=== PATIENT | female | born 2005 | race Caucasian/White ===

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

== ENCOUNTER 2024-12-10 18:52 | Emergency (ER) | payer OTHER, MEDICAID, SELFPAY ==
--- OUTSIDE RECORDS SUMMARY | 2024-03-21 08:00 | XMS_ITS ---
Author Organization [facility] es Address [address] [place] [address] Care Team Providers Care Bevel Operator Name Role Phone Sylwia Sheth Primary Care Provider Dr. Kayden Fang [facility] [phone] Allergies Allergen (clinical drug ingredient) Drug/Non Drug Allergy documented on EMR Reaction Allergy Type Onset Date Status lamotrigine LaMICtal rash Drug Allergy Active REASON FOR VISIT Patient is here today for a 3 week f/u. Medications Medication SIG (Take, Route, Frequency, Duration) Notes Start Date End Date Status lamoTRIgine 25 MG Tablet 1 tablet daily for 2 weeks and then increase to 2 tablets daily for 2 weeks Orally Once a day; Duration: 30 day(s) 07/22/2022Not-Taking/PRNARIPiprazole 5 MG Tablet1 tablet Orally Once a day; Duration: 30 daysActiveNexplanonNot-Taking/PRN Encounters Encounter Location Date Provider Diagnosis [facility] [address] [place] [address] 03/21/2024 Sylwia Sheth Plan Of Treatment Next Appt Details Provider Name:Kayden Fang, 1 03/13/2024 03:55:00 PM, [address] [place], [address], Provider Name:Breanna Lindsey , 05/12/2025 11:00:00 AM, [address] [place], [address], Progress Notes * DESTIN MANCINIDOB:2005 ( 19 yo F)Acc No.[id number]:03/21/2024 Behavioral Health Patient: DESTIN COCHRAN Provider:?Sylwia PaulB:2005???Age:19 Y ???Sex:FemaleDate:03/21/2024Phone:[phone]:[address] [facility] Subjective: * Chief Complaints: * P atient is here today for a 3 week f/u. * Medical History: Bipolar II disorder Medical History Verified * Surgical History: Denies Past Surgical History.? * Hospitalization/Major Diagno stic Procedure: Denies Past Hospitalization.? * Family History: F ather: alive. M other: alive. 2 brother(s) , 3 sister(s) . . F amily History Verified.. * Social History: Social History Verified. No Social History documented. * Medications: T akingARIPiprazole 5 MG Tablet 1 tablet Orally Once a day Taking ARIPiprazole 5 MG Tablet 1 tablet Orally Once a day Not-Taking/PRNNexplanon lamoTRIgine 25 MG Tablet 1 tablet daily for 2 weeks and then increase to 2 tablets daily for 2 weeks Orally Once a day Not-Taking/PRN Nexplanon Not-Taking/PRN lamoTRIgine 25 MG Tablet 1 tablet daily for 2 weeks and then increase to 2 tablets daily for 2 weeks Orally Once a day * Allergies: L aMICtal: rash - Side EffectsyesAllergies Verified. Billing Information: * Procedure Codes: * Electronic signature of ALTA Chaudhry on 12/10/2024 at 08:01 PM ESTSign off status: Pending * Appointment Provider: Moraima Sheth Date: 0 03/21/2024 Generated for Printing/Faxing/eTransmitting on:?12/10/2024 08:01 PM EST
--- OUTSIDE RECORDS SUMMARY | 2024-05-06 08:35 | XMS_ITS ---
Author Organization [facility] Address [address] [place] [address] Care Team Providers Care No Bake Molder Name Role Phone Sylwia Sheth Primary Care Provider [phone] Kayden Fang Unavailable [phone] Suzie Haney Unavailable [phone] REASON FOR VISIT FILLING Encounters Encounter Location Date Provider Diagnosis [facility] [address] [place] [address] 05/06/2024 Suzie Haney Plan Of Treatment Next Appt Details Provider Name:Kayden Fang, 1 03/13/2024 03:55:00 PM, [address] [place], [address], Provider Name:Breanna Lindsey , 05/12/2025 11:00:00 AM, [address] [place], [address], Progress Notes * DESTIN MANCINIDOB:2005 ( 19 yo F)Acc No.[id number]:05/06/2024 Patient:?DESTIN MANCINI :?Suzie HaneyDOB:2005???Age:19 Y???Sex: FemaleDate:05/06/2024Phone:[phone]:[address] [id number]:Sylwia Sheth Subjective: * Chief Complaints: * F ILLING Billing Information: * Procedure Codes: * Electronic signature of Suzie Haney DMD on 12/10/2024 at 08:01 PM ESTSign off status: Pending * Provider: Chun Haney Date: 0 05/06/2024 Generated for Printing/Faxing/eTransmitting on:?12/10/2024 08:01 PM EST
--- OUTSIDE RECORDS SUMMARY | 2024-05-16 08:30 | XMS_ITS ---
Author Organization [facility] Address [address] [place] [address] Care Team Providers Care Impregnator Carbon Products Name Role Phone Sylwia Sheth Primary Care Provider Dr. Kayden Fang [facility] [phone] REASON FOR VISIT 6 month f/u Medications Medication SIG (Take, Route, Frequency, Duration) Notes Start Date End Date Status Nexplanon Not-Taking/PRNLurasidone HCl 20 MG Tablet1 tablet in the evening with food Orally Once a day; Duration: 30 days5ActivelamoTRIgine 25 MG Tablet1 tablet daily for 2 weeks and then increase to 2 tablets daily for 2 weeks Orally Once a day; Duration: 30 day(s)07/22/2022Not-Taking/PRN Encounters Encounter Location Date Provider Diagnosis [facility] [address] [place] [address] 05/16/2024 Sylwia Sheth Plan Of Treatment Next Appt Details Provider Name:Kayden Fang, 1 03/13/2024 03:55:00 PM, [address] [place], [address], Provider Name:Breanna Lindsey , 05/12/2025 11:00:00 AM, [address], [place], [address], Progress Notes * DESTIN MANCINIDOB:2005 ( 19 yo F)Acc No.[id number]:05/16/2024 Behavioral Health Patient: DESTIN COCHRAN Provider:?Sylwia ShethDOB:2005???Age:19 Y ???Sex:FemaleDate:05/16/2024Phone:[phone]:[address] [place], [id number] Subjective: * Chief Complaints: * 6 month f/u * Medications: T akingLurasidone HCl 20 MG Tablet 1 tablet in the evening with food Orally Once a day Taking Lurasidone HCl 20 MG Tablet 1 tablet in the evening with food Orally Once a day Not-Taking/PRNNexplanon lamoTRIgine 25 MG Tablet 1 tablet daily for 2 weeks and then increase to 2 tablets daily for 2 weeks Orally Once a day Not-Taking/PRN Nexplanon Not-Taking/PRN lamoTRIgine 25 MG Tablet 1 tablet daily for 2 weeks and then increase to 2 tablets daily for 2 weeks Orally Once a day Billing Information: * Procedure Codes: * Electronic signature of ALTA Chaudhry on 12/10/2024 at 11:09 AM ESTSign off status: Pending * Appointment Provider: Moraima Sheth Date: 0 05/16/2024 Generated for Printing/Faxing/eTransmitting on:?12/10/2024 11:09 AM EST
--- OUTSIDE RECORDS SUMMARY | 2024-08-02 10:30 | XMS_ITS ---
Author Organization [facility] Address [address] [place] [address] Care Team Providers Care Certified Hyperbaric Technician Name Role Phone Sylwia Sheth Primary Care Provider [phone] Kayden Fang Unavailable [phone] REASON FOR VISIT FILLING Encounters Encounter Location Date Provider Diagnosis [facility] [address] [place] [address] 2024 Kayden Fang Plan Of Treatment Next Appt Details Provider Name:Kayden Fang, 1 03/13/2024 03:55:00 PM, [address] [place], [address], Provider Name:Breanna Lindsey , 05/12/2025 11:00:00 AM, [address] [place], [address], Progress Notes * DESTIN MANCINIDOB:2005 ( 19 yo F)Acc No.[id number]:08/02/2024 Patient:?DESTIN MANCINI :?Kayden Fang DDSDOB:2005???Age:19 Y???Sex: FemaleDate:08/02/2024Phone:[phone]:[address] [id number]:Sylwia Sheth Subjective: * Chief Complaints: * F ILLING Billing Information: * Procedure Codes: * Electronic signature of Dr. Kayden Fang , DMD, [id number] on 12/10/2024 at 11:09 AM ESTSign off status: Pending * Provider: Chun Fang DDS Date: 0 08/02/2024 Generated for Printing/Faxing/eTransmitting on:?12/10/2024 11:09 AM EST
[2024-12-10 19:07] VITALS: BP 124/99; PULSE 72; O2SAT 100; BMI 31.2
--- OUTSIDE RECORDS SUMMARY | 2024-12-10 20:01 | XMS_ITS | Encounter Summary ---
Author Organization [facility] Address [address] [place] [address] Care Team Providers Care Excavator Backhoe Operator Name Role Phone Karen Perez Aneudy CNM Unavailable [phone] Nyasia Breen MD Primary Care Provider [phone] Encounter Details DateTypeDepartmentCare Team (Latest Contact Info)Cxluzycshdr67/13/2024Clinisync Result Encounter [facility] External Department Unsolicited Provider, Generic External Data Social History Tobacco UseTypesPacks/DayYears UsedDateSmoking Tobacco: NeverSmokeless Tobacco: Never Comments:Uses tobacco in oth er forms Alcohol UseStandard Drinks/WeekCommentsNot Currently0 (1 standard drink = 0.6 oz pure alcohol)6 or more drinkson 1 occasion/ less than monthly. caffeine:none PHQ-2AnswerDate RecordedPatient Health Questionnaire-2 [id number] CommentsYesSex and Gender InformationValueDate RecordedSex Assigned at BirthNot on fileLegal PuuGbgwhl86/15/2023 7:34 PM EDTGender IdentityNot on fileSexual OrientationNot on filedocumented as of this encounter Plan of Treatment Not on file documented as of this encounter Procedures Procedure NamePriorityDate/TimeAssociated DiagnosisCommentsUS OB ANATOMY 07/20/2023 9:00 AM EDT ALL CBC WITH AUTO EOXCKzhnzkn56/13/2024 7:54 AM EDT documented in this encounter Results * US OB ANATOMY (07/20/2023 9:00 AM EDT)Anatomical RegionLateralityModalityOther Specimen (Source)Anatomical Location / LateralityCollection Method / Volume Collection TimeReceived Time07/20/2023 9:00 AM EDT Narrative 07/20/2023 9:03 AM EDT [facility] ?[address] ? [place] [address] ? Ultrasound Report ? Signed ? Patient: KOUTS,DESTIN ? MR#: [id number] ?? : 2005 ?Acct:[id number] ?? Age/Sex: 18 / F ?ADM Date: 07/20/23 ?? Loc: LAB ? Attending Dr: Ronaldo Melgar D.O. ? Ordering Physician: Ronaldo Melgar D.O. ?? Date of Service: 07/20/23 ?? Procedure(s): US OB anatomy ?? Accession Number(s): [id number] ? cc: Ronaldo Melgar D.O.; NYASIA BREEN ? [facility] ? [address] [facility] ? [place] [address] ? Patient Name: ?? DESTIN ??KOUTS ? MRN: [facility]:[id number] ? date: 2005 ?Sex: F ?? Assigned Patient Location: LAB ?? Current Patient Location: LAB ?? Accession/Order Number: [id number] ?? Exam Date: 07/20/2023 ??08:01 ?Report Date: 07/20/2023 ??09:00 ? At the request of: ?? RONALDO ??TALIA ? Procedure: ??US OB anatomy ? EXAMINATION: US OB anatomy, US OB cervical length ? HISTORY: Screening For Anatomic Survey Z36.89 ? COMPARISON: No relevant comparison available. ? TECHNIQUE: Transabdominal sonographic examination was performed for ?? obstetrical ?? and evaluation. ? FINDINGS: ? Number: 1 ?? Heart Rate: 138.5 bpm H.B. /min ?? Amniotic Fluid Volume: Subjectively normal ?? position: Cephalic presentation, longitudinal lie ?? Placental Location: Anterior fundal. Grade 0. The placental edge is 4.9 cm ?? from ?? the internal cervical os ?? Cervix Length: 4.7 cm , closed ? Normal anatomy: Lateral ventricles, cerebellum, posterior fossa, nose, lips, ?? orbits, four-chamber heart, RVOT, LVOT, diaphragm, stomach, kidneys, abdominal ? cord insertion, bladder, umbilical arteries, three-vessel cord, spine, ?? extremities ? BIOMETRY: ?? BPD: 6.2 cm 25 weeks 1 days , 20% ?? HC: 23.6 cm 25 weeks 4 days, 19% ?? AC: 21.3 cm 25 weeks 6 days, 39% ?? FL: 4.4 cm 24 weeks 4 days , 8% ?? EFW:794.4 grams; , 1 lb. 12 oz., 19% ?? FL/AC: 20.8 ?? FL/BPD: 71.2 ?? HC/AC: 1.1 ? GESTATIONAL AGE: ?? Age by EDC: 25 weeks 6 days ?? VICTOR M by EDC: 10/27/2023 ? Age by current US: 25 weeks 2 days ?? VICTOR M by current US: 10/31/2023 ? US/US OB anatomy ?? IMPRESSION: ? Normal anatomy scan ? Closed cervix measuring 4.7 cm in length ? *Reference: [facility] Practice Guideline for the performance of Obstetric ?? Ultrasound ?? Examinations, November 06, 2006. ? Electronically authenticated by: DONALD ??TAY ?? Date: 07/20/2023 ??09:00 ? Dictated By: ?Donald Cross M.D. ? Signed By: ?07/20/23 0903 ? DD/ 0900 ? TD/TT: ? Waste Paper Hammermill Operator: Procedure Note Radiology, Radiologist, - 07/20/2023 [place] [address] Ultrasound Report Signed Patient: TOMMY MANCINI#: [id number] : 2005Acct:[id number] Age/Sex: 18 / FADM Date: 07/20/23 Loc: LAB Attending Dr: Ronaldo Melgar D.O. Ordering Physician: Ronaldo Melgar D.O. Date of Service: 07/20/23 Procedure(s): US OB anatomy Accession Number(s): [id number] cc: Ronaldo Melgar D.O.; NYASIA BREEN The [address] [address] Patient Name: DESTIN MANCINI MRN: [facility]:[id number] date: 2005 Sex: F Assigned Patient Location: LAB Current Patient Location: LAB Accession/Order Number: [id number] Exam Date: 07/20/2023 08:01 Report Date: 07/20/2023 09:00 At the request of: RONALDO MELGAR Procedure: US OB anatomy EXAMINATION: US OB anatomy, US OB cervical length HISTORY: Screening For Anatomic Survey Z36.89 COMPARISON: No relevant comparison available. TECHNIQUE: Transabdominal sonographic examination was performed for obstetrical and evaluation. FINDINGS: Number: 1 Heart Rate: 138.5 bpm H.B. /min Amniotic Fluid Volume: Subjectively normal position: Cephalic presentation, longitudinal lie Placental Location: Anterior fundal. Grade 0. The placental edge is 4.9 cm from the internal cervical os Cervix Length: 4.7 cm , closed Normal anatomy: Lateral ventricles, cerebellum, posterior fossa, nose,lips, orbits, four-chamber heart, RVOT, LVOT, diaphragm, stomach, kidneys,abdominal cord insertion, bladder, umbilical arteries, three-vessel cord, spine, extremities BIOMETRY: BPD: 6.2 cm 25 weeks 1 days , 20% HC: 23.6 cm 25 weeks 4 days, 19% AC: 21.3 cm 25 weeks 6 days, 39% FL: 4.4 cm 24 weeks 4 days , 8% EFW:794.4 grams; , 1 lb. 12 oz., 19% FL/AC: 20.8 FL/BPD: 71.2 HC/AC: 1.1 GESTATIONAL AGE: Age by EDC: 25 weeks 6 days VICTOR M by EDC: 10/27/2023 Age by current US: 25 weeks 2 days VICTOR M by current US: 10/31/2023 US/US OB anatomy IMPRESSION: Normal anatomy scan Closed cervix measuring 4.7 cm in length *Reference: [facility] Practice Guideline for the performance of Obstetric Ultrasound Examinations, November 06, 2006. Electronically authenticated by: DONALD CROSS Date: 07/20/2023 09:00 Dictated By: Donald Cross M.D. Signed By:07/20/23902 DD/ 9 TD/TT: Waste Paper Hammermill Operator: Authorizing ProviderResult TypeResult StatusGeneric External Data Provider CLINISYNC IMAGINGFinal Result * (ABNORMAL) ALL CBC WITH AUTO DIFF (07/20/2023 7:54 AM EDT)ComponentValueRef RangeTest MethodAnalysis TimePerformed AtPathologist SignatureMARY A. [facility]LEY [facility]ITAL WBC9.54.0 - 11.0 10 3/uLTBHTBH RBC3.46(L)4.20 - 5.40 10 6/uLTBHTBH HGB10.6(L)12.0 - 16.0 g/dLTBHTBH HCT31.9(L)36.0 - 48.0 %TBHTBH MCV92.281.0 - 99.0 fLTBHTBH MCH30.6 26.7 - 34.0 pgTBHTBH MCHC33.229.9 - 35.2 g/dLTBHTBH RDW13.511.0 - 15.0 %TBHTBH OIN949315 - 450 10 3/uLTBHTBH MPV10.59.5 - 13.5 fLTBHNEUTROPHILS PERCENT AUTO 63.943.0 - 75.0 %TBHLYMPHOCYTES PERCENT AUTO26.920.5 - 60.0 %TBHMONOCYTES PERCENT AUTO6.51.7 - 12.0 %TBHTBH EO %1.60.9 - 7.0 %TBHBASOPHILS PERCENT AUTO 0.50.2 - 2.0 %TBHIMMATURE GRANULOCYTES PCT AUTO0.6(H)0.0 - 0.5 %TBHNEUTROPHILS ABSOLUTE AUTO6.11.4 - 6.5 10 3/uLTBHLYMPHOCYTES ABSOLUTE AUTO2.61.2 - 3.8 10 3/uLTBHMONOCYTES ABSOLUTE AUTO0.60.3 - 0.8 10 3/uLTBHTBH EO #0.20.0 - 0.7 10 3/uLTBHBASOPHILS ABSOLUTE AUTO0.10.0 - 0.1 10 3/uLTBHIMMATURE GRANULOCYTES ABS AUTO0.06(H)0.00 - 0.03 10 3/uLTBHSpecimen (Source)Anatomical Location / LateralityCollection Method / VolumeCollection TimeReceived Time07/20/2023 7:54 AM EDT07/20/2023 7:57 AM EDT Narrative CLINISYNC - 07/20/2023 9:05 AM EDT Authorizing ProviderResult TypeResult StatusCorey Talia DOCLINISYNCFinal Result Performing OrganizationAddressCity/State/ZIP CodePhone Number CLIN[facility]NC TB documented in this encounter Visit Diagnoses Not on filedocumented in this encounter Additional Health Concerns AssessmentNoted TimePHQ-9 Depression Total Score: 1:09 PM EDT documented as of this encounter Care Teams Team MemberRelationshipSpecialtyStart DateEnd Date Nyasia Breen MD [address] [place], [place] [id number] PCP - GeneralFamily Medicine08/11/22 Karen Perez CNM [address] [place], [place] [id number] Obstetrics and Gynecology08/11/22documented as of this encounter
--- OUTSIDE RECORDS SUMMARY | 2024-12-10 20:02 | XMS_ITS | Patient Health Record ---
Author Organization [employer] [facility] Address [address] [place] [address] Care Team Providers Care Clean Out Driller Helper Name Role Phone MerylSylwia Primary Care Provider Dr. Kayden Fang Unavailable [phone] Breanna Lindsey Unavailable [phone] Suzie Haney Unavailable [phone] Allergies Allergen (clinical drug ingredient) Drug/Non Drug Allergy documented on EMR Reaction Allergy Type Onset Date Status lamotrigine LaMICtal rash Drug Allergy Active Reason For Referral No Information Medications Medication SIG (Take, Route, Frequency, Duration) Notes Start Date End Date Status lamoTRIgine 25 MG Tablet 1 tablet daily for 2 weeks and then increase to 2 tablets daily for 2 weeks Orally Once a day; Duration: 30 day(s) 07/22/2022Not-Taking/PRNNexplanonNot-Taking/PRNLurasidone HCl 20 MG Tablet1 tablet in the evening with food Orally Once a day; Duration: 30 days03/28/2024 Active Social History Tobacco Use: Social History Observation Description Date Details (start date - stop date) Smoker, current status unknown NA - NA Social History GeneralSocial InfoQuestionAnswerNotesDepression Screening (PHQ-9):Little interest or pleasure in doing thingsMore than half the daysFeeling down, depressed, or hopelessMore than half the daysTrouble falling or staying asleep, or sleeping too muchMore than half the daysFeeling tired or having little energy More than half the daysPoor appetite or overeatingSeveral daysFeeling bad about yourself-or that you are a failure or have let yourself or your family downMore than half the daysTrouble concentrating on things, such as reading the newspaper or watching televisionMore than half the daysMoving or speaking so slowly that other people could have noticed. Or the opposite being so fidgetyor restless that you have been moving around a lot more than usualMore than half the days Thoughts that you would be better off , or of hurting yourself in some way Not at allTotal Bvqxb10ApjytcijorfruGkwocssxxe severe depressionTobacco Screen: Are you a:Smoker, current status unknownAlcohol Screening:Did you have a drink containing alcohol in the past year?Yes? How often did you have a drink containing alcohol in the past year?Monthly or less (1 point)? How many drinks did you have on a typical day when you were drinking in the past year?1 or 2 (0 points)? How often did you have six or more drinks on one occasion in the past year?Never (0 points)Wirmdt5XmmyqoynkvyqhgEhpeesdw Problems Problem Type SNOMED Code ICD Code Onset Dates Problem Status W/U Status Risk Notes Problem Body mass index 30.0 0 to 34.99 (032998100916055) BMI 34.0-34.9,adult (Z68.34) ActiveconfirmedProblemObese class I (717036567965297)BMI 33.0-33.9,adult (Z68.33)ActiveconfirmedProblemBody mass index 30.00 to 34.99 (208050802125165) BMI 31.0-31.9,adult (Z68.31)ActiveconfirmedProblemMixed bipolar affective disorder, moderate (517800086)Bipolar mixed affective disorder, moderate (F31.62)Activeconfirmed Vital Signs Heart Rate 76 /min 03/28/2024 Oowzjbyd78 %03/28/2024lood pressure kfnrushsc56 mm Hg03/28/2024MI Percentile 95.38002/27/20249785Yxehcq01.50 in03/28/2024lood pressure mm Hg 03/28/20241226Duayok428.0 lbs03/28/2024BMI34.2 kg/m203/28/2024 Encounters Encounter Location Date Provider Diagnosis [facility] [address] [place] [address] 02/27/2024 Sylwia Sheth Bipolar mixed affective disorder, moderate F31.62 [facility] [address] [place] [address] 03/14/2024 Suzie Haney Encounter for dental examination and cleaning with abnormal findings Z01.21 ; Other dental procedure status Z98.818 ; Disturbances in tooth eruption K00.6 ; Acute gingivitis, plaque induced K05.00 ; Dental caries on pit and fissure surface penetrating into dentin K02.52 and Arrested dental caries K02.3 [facility] [address] [place] [address] 03/28/2024 Sylwia Sheth Bipolar mixed affective disorder, moderate F31.62 [facility] [address] [place] [address] 05/28/2024 Suzie Saric Dental caries on pit and fissure surface penetrating into dentin K02.52 [facility] [address] [place] [address] 05/30/2024 Suzie Saric Dental caries on pit and fissure surface penetrating into dentin K02.52 [facility] [address] [place] [address] 08/22/2024 Breanna Lindsey Acute gingivitis, plaque induced K05.00 [facility] [address] [place] [address] 03/27/[address] [facility] [place] [address]/[facility] [address]/valerie Sheth Bipolar mixed affective disorder, moderate F31.62 Assessments Encounter Date Diagnosis (ICD Code) Assessment Notes Treatment Notes Treatment Clinical Notes Section Notes 02/27/2024 Bipolar mixed affective disorder , moderate (ICD-10 - F31.62) Recommended treatment for Bipolar disorder includes FDA approved and OFF label medications: second generation antipsychotics and mood stabilizers. Discussed life threatening side effect of Lamotrigine. Pt is to monitor for new skin rashes or sensation of a sunburn or itchiness or redness, mouth sores or sores in mucus membranes, and call provider immediately and or go to ER, and stop the medication. Second generation antipsychotic medications can cause headache, drowsiness, agitation, dizziness, nausea, or extrapyramidal symptoms such as tremors, muscle spasms, slowness of movement or jerkingof muscles. The patient verbalizes understanding with all questions answered thoroughly and is in agreement with treatment plan. Continue current treatment. . Call for problems . GOALS: . Maintain medication regimen _Improve mood stability _Improve anxiety control _Improve social and interpersonal functioning Patient/Guardian will call sooner if symptoms worsen. Patient understands to go to ER if needed if symptoms become severe. Crisis Intervention plan was discussed and agreed upon. Patient/Guardian will call 911 in case of emergency. Emergency contact information was provided to the patient/guardian. follow up 1 month. Pharmacological management: . Alternative medication plans were discussed with the patient/guardian. All relevant side effects and potential adverse effects were discussed with the patient/guardian. Standard cautions and potential benefits were discussed. Patient/Guardian consented to the start/continuation of the treatment. 5Bipolar mixed affective disorder, moderate (ICD-10 - F31.62) Recommended treatment for Bipolar disorder includes FDA approved and OFF label medications: second generation antipsychotics and mood stabilizers. Discussed life threatening side effect of Lamotrigine. Pt is to monitor for new skin rashes or sensation of a sunburn or itchiness or redness, mouth sores or sores in mucus membranes, and call provider immediately and or go to ER, and stop the medication. Second generation antipsychotic medications can cause headache, drowsiness, agitation, dizziness, nausea, or extrapyramidal symptoms such as tremors, muscle spasms, slowness of movement or jerkingof muscles. The patient verbalizes understanding with all questions answered thoroughly and is in agreement with treatment plan. Change current treatment to lurasidone to aripiprazole. . Call for problems GOALS: Maintain medication regimen _Improve mood stability _Improve anxiety control _Improve social and interpersonal functioning Patient/Guardian will call sooner if symptoms worsen. Patient understands to go to ER if needed if symptoms become severe. Crisis Intervention plan was discussed and agreed upon. Patient/Guardian will call 911 in case of emergency. Emergency contact information was provided to the patient/guardian. follow up 6 weeks. Pharmacological management: . Alternative medication plans were discussed with the patient/guardian. All relevant side effects and potential adverse effects were discussed with the patient/guardian. Standard cautions and potential benefits were discussed. Patient/Guardian consented to the start/continuation of the treatment. 5Bipolar mixed affective disorder, moderate (ICD-10 - F31.62)05/28/2024 Dental caries on pit and fissure surface penetrating into dentin (ICD-10 - K02.52)05/30/2024Dental caries on pit and fissure surface penetrating into dentin (ICD-10 - K02.52)5Acute gingivitis, plaque induced (ICD-10 - K05.00)03/14/2024Encounter for dental examination and cleaning with abnormal findings (ICD-10 - Z01.21)03/14/2024Other dental procedure status (ICD-10 - Z98.818)03/14/2024Disturbances in tooth eruption (ICD-10 - K00.6)5Acute gingivitis, plaque induced (ICD-10 - K05.00)03/14/2024Dental caries on pit and fissure surface penetrating into dentin (ICD-10 - K02.52)03/14/2024rrested dental caries (ICD-10 - K02.3) Plan Of Treatment Next Appt Details Provider Name:Kayden Fang, 1 03/13/2024 03:55:00 PM, [address], [place], [address], Provider Name:Breanna Lindsey , 05/12/2025 11:00:00 AM, [address], [place], [address], Insurance Providers Payer Name Payer Address Payer Phone Subscriber Number Group Number Insured Name Patient Relationship to Insured Coverage Start Date Coverage End Date ANTHEM Primary [address] [place] [address] [phone] [id number] DESTIN MANCINI Self - patient is the insured 3 [employer] [address] [address] [place] [id number], BLAIR Self - patient is the [id number] [address] [facility] HumanaPO [address] [place] [id number], BLAIRSelf - patient is the [id number] 2024 Medical (General) History Medical History History ICD Code Bipolar II disorder
--- OUTSIDE RECORDS SUMMARY | 2024-12-10 20:02 | XMS_ITS | Encounter Summary ---
Author Organization [facility] Address [address] [place] [address] Care Team Providers Care Tunnel Form Placing Supervisor Name Role Phone Karen Perez Aneudy CNM Unavailable [phone] Nyasia Breen MD Primary Care Provider [phone] Encounter Details DateTypeDepartmentCare Team (Latest Contact Info)Rdqnmqakexv29/13/2024Clinisync Result Encounter [facility] External Department Unsolicited Provider, Generic External Data Social History Tobacco UseTypesPacks/DayYears UsedDateSmoking Tobacco: NeverSmokeless Tobacco: Never Comments:Uses tobacco in oth er forms Alcohol UseStandard Drinks/WeekCommentsNot Currently0 (1 standard drink = 0.6 oz pure alcohol)6 or more drinkson 1 occasion/ less than monthly. caffeine:none PHQ-2AnswerDate RecordedPatient Health Questionnaire-2 Ugwxp1663 CommentsYesSex and Gender InformationValueDate RecordedSex Assigned at BirthNot on fileLegal MftJgrgeq37/15/2023 7:34 PM EDTGender IdentityNot on fileSexual OrientationNot on filedocumented as of this encounter Plan of Treatment Not on file documented as of this encounter Procedures Procedure NamePriorityDate/TimeAssociated DiagnosisCommentsUS OB CERVICAL LENGTH 07/20/2023 9:00 AM EDT documented in this encounter Results * US OB CERVICAL LENGTH (07/20/2023 9:00 AM EDT)Anatomical RegionLaterality ModalityOtherSpecimen (Source)Anatomical Location / LateralityCollection Method / VolumeCollection TimeReceived Time07/20/2023 9:00 AM EDT Narrative 07/20/2023 9:03 AM EDT [facility] ?[address] ? [place] [address] ? Ultrasound Report ? Signed ? Patient: KOUTS,DESTIN ? MR#: [id number] ?? : 2005 ?Acct:[id number] ?? Age/Sex: 18 / F ?ADM Date: 07/20/23 ?? Loc: LAB ? Attending Dr: Ronaldo Melgar D.O. ? Ordering Physician: Ronaldo Melgar D.O. ?? Date of Service: 07/20/23 ?? Procedure(s): US OB cervical length ?? Accession Number(s): [id number] ? cc: Ronaldo Melgar D.O.; NYASIA BREEN ? [facility] ? [address] [facility] ? [place] [address] ? Patient Name: ?? DESTIN ??KOUTS ? MRN: [facility]:[id number] ? date: 2005 ?Sex: F ?? Assigned Patient Location: LAB ?? Current Patient Location: LAB ?? Accession/Order Number: [id number] ?? Exam Date: 07/20/2023 ??08:01 ?Report Date: 07/20/2023 ??09:00 ? At the request of: ?? RONALDO ??OVI ? Procedure: ??US OB cervical length ? EXAMINATION: US OB anatomy, US OB [...] by current US: 10/31/2023 ? US/US OB cervical length ?? IMPRESSION: ? Normal anatomy scan ? Closed cervix measuring 4.7 cm in length ? *Reference: [facility] Practice Guideline for the performance of Obstetric ?? Ultrasound ?? Examinations, November 06, 2006. ? Electronically authenticated by: DONALD ??TAY ?? Date: 07/20/2023 ??09:00 ? Dictated By: ?Donald Cross M.D. ? Signed By: ?07/20/23 0903 ? DD/ 0900 ? TD/TT: ? Attendant Coin Operated Laundry: Procedure Note Radiology, Radiologist, - 07/20/2023 [place] [address] Ultrasound Report Signed Patient: MIHIR MANCINIR#: [id number] : 2005Acct:[id number] Age/Sex: 18 / FADM Date: 07/20/23 Loc: LAB Attending Dr: Ronaldo Melgar D.O. Ordering Physician: Ronaldo Melgar D.O. Date of Service: 07/20/23 Procedure(s): US OB cervical length Accession Number(s): [id number] cc: Ronaldo Melgar D.O.; NYASIA BREEN The [address] [address] Patient Name: DESTIN MANCINI MRN: [facility]:[id number] date: 2005 Sex: F Assigned Patient Location: LAB Current Patient Location: LAB Accession/Order Number: [id number] Exam Date: 07/20/2023 08:01 Report Date: 07/20/2023 09:00 At the request of: RONALDO MELGAR Procedure: US OB cervical length EXAMINATION: US OB anatomy, US OB cervical [...] M by current US: 10/31/2023 US/US OB cervical length IMPRESSION: Normal anatomy scan Closed cervix measuring 4.7 cm in length *Reference: [facility] Practice Guideline for the performance of Obstetric Ultrasound Examinations, November 06, 2006. Electronically authenticated by: DONALD CROSS Date: 07/20/2023 09:00 Dictated By: Donald Cross M.D. Signed By:07/20/23902 DD/ 9 TD/TT: Attendant Coin Operated Laundry: Authorizing ProviderResult TypeResult StatusGeneric External Data Provider CLIN[facility]NC IMAGINGFinal Result documented in this encounter Visit Diagnoses Not on filedocumented in this encounter Additional Health Concerns AssessmentNoted TimePHQ-9 Depression Total Score: 1:09 PM EDT documented as of this encounter Care Teams Team MemberRelationshipSpecialtyStart DateEnd Date Nyasia Breen MD [address] [facility] [place] [address] PCP - GeneralFamily Medicine08/11/22 Karen Perez CNM [address] [facility] [place], [place] [id number] Obstetrics and Gynecology08/11/22documented as of this encounter
--- OUTSIDE RECORDS SUMMARY | 2024-12-10 20:02 | XMS_ITS | Clinical Summary ---
Author Organization [facility] Address [address] [place] [address] Care Team Providers Care Cosmetic Account Coordinator Name Role Phone Ana Karen Amado CNM Unavailable [phone] Nyasia Beatty MD Primary Care Provider [phone] Allergies Active AllergyReactionsCriticalityNoted NxxjWfkruyksZrfaoghqqsqDhkvXpc66/01/2024 Medications No known medications Active Problems ProblemNoted DateDiagnosed DateThird trimester ([facility])7 weeks gestation of ([facility])10/12/2023djustment disorder with depressed mood11/04/2022ipolar II hxfosehd50/29/2023lass 1 mexsdrz2611/04/2022 Hfxrfhwcfejl63/29/2023Irregular zdywpuf9511/04/2022Menorrhagia with irregular cycle11/04/2022Mixed bipolar affective disorder, amujzsrm15/29/2023 Immunizations ImmunizationAdministration DatesNext AjfFSpL8106/22/2005DTaP / Hep B / IPV 2004,2004,2004DTaP / IPV10/15/2009HPV, Zzqicoeqovpb91/28/2021, 09/24/2019Hep B, Adolescent or Impvumqlh52/04/2005HiB, kpvebzbsobc36/18/2005Hib (PRP-T)06/22/2005,2004,2004Influenza Whole2004Influenza, seasonal, skejlfywwv24/18/9613PJT3106/22/2005MMRV09Meningococcal MCV4P 09/21/2016Pneumococcal Conjugate PCV 7006/22/2005,2004,2004, 2004Tdap09/21/20167837Cnmddpskn62/17/2006 Family History Medical HistoryRelationNameCommentsNo Known ProblemsBrother 1No Known Problems Brother 2high blood pressureFatherNo Known ProblemsSister 1No Known Problems Sister 2No Known ProblemsSister 3RelationNameStatusCommentsBrother 1AliveBrother 2AliveFatherAliveMotherAliveSister 1AliveSister 2AliveSister 3Alive Social History Tobacco UseTypesPacks/DayYears UsedDateSmoking Tobacco: NeverSmokeless Tobacco: Never Tobacco Cessation:Counseling Given: Not Answered Comments:Uses tobacco in other forms Alcohol UseStandard Drinks/WeekCommentsNot Currently0 (1 standard drink = 0.6 oz pure alcohol)caffeine:nonePHQ-2AnswerDate RecordedPatient Health Questionnaire-2 Hjmry4633CommentsUnknownSex and Gender InformationValueDate RecordedSex Assigned at BirthNot on fileLegal JshSrwxxd52/15/2023 7:34 PM EDT Gender IdentityNot on fileSexual OrientationNot on file Last Filed Vital Signs Vital SignReadingTime TakenCommentsBlood Qxootdas743/8606 10:31 AM EDT Ykpev548207/09/2024 10:31 AM JOQZkosfhimjru22.4 ??C (97.5 ??F)07/09/2024 10:31 AM EDTRespiratory Wzhp8028 2:53 PM EDTOxygen Aprghyuqla65%07/09/2024 10:31 AM EDTInhaled Oxygen Concentration--Iwfaob71.4 kg (186 lb)07/09/2024 10:31 AM EEEOyvaek076.8 cm (5' 1.75 )07/09/2024 10:31 AM EDTBody Mass Index34.306 10:31 AM EDT Plan of Treatment Health MaintenanceDue DateLast DoneCommentsCOVID-19 Vaccine ( season) 2024Influenza Vaccine (#1)5102/24/2004, 2004Pneumococcal Vaccine: Pediatrics (0 to 5 Years) and At-Risk Patients (6 to 64 Years)Aged Out 06/22/2005, 2004, 2004, Additional history existsNo longer eligible based on patient's age to complete this topic Insurance Care Teams Team MemberRelationshipSpecialtyStart DateEnd Nyasia Beatty MD [address], [place] [id number] PCP - GeneralFamily Medicine08/11/22 Karen Perez CNM [address] [place] [address] Obstetrics and Gynecology08/11/22
--- OUTSIDE RECORDS SUMMARY | 2024-12-10 20:02 | XMS_ITS | Encounter Summary ---
Author Organization [facility] Address [address] [place] [address] Care Team Providers Care Lead Security Officer Name Role Phone Karen Perez Aneudy CNM Unavailable [phone] Nyasia Breen MD Primary Care Provider [phone] Encounter Details DateTypeDepartmentCare Team (Latest Contact Info)Aciuomyzpdn31/07/2024Clinisync Result Encounter [facility] External Department Unsolicited Provider, Generic External Data Social History Tobacco UseTypesPacks/DayYears UsedDateSmoking Tobacco: NeverSmokeless Tobacco: Never Comments:Uses tobacco in oth er forms Alcohol UseStandard Drinks/WeekCommentsNot Currently0 (1 standard drink = 0.6 oz pure alcohol)6 or more drinkson 1 occasion/ less than monthly. caffeine:none PHQ-2AnswerDate RecordedPatient Health Questionnaire-2 [id number] CommentsYesSex and Gender InformationValueDate RecordedSex Assigned at BirthNot on fileLegal IopMiueuy09/15/2023 7:34 PM EDTGender IdentityNot on fileSexual OrientationNot on filedocumented as of this encounter Plan of Treatment Not on file documented as of this encounter Procedures Procedure NamePriorityDate/TimeAssociated DiagnosisCommentsUS OB TRANSVAGINAL 04/13/2023 3:22 PM EST documented in this encounter Results * US OB TRANSVAGINAL (04/13/2023 3:22 PM EST)Anatomical RegionLateralityModality OtherSpecimen (Source)Anatomical Location / LateralityCollection Method / VolumeCollection TimeReceived Time04/13/2023 3:22 PM EST Narrative 04/13/2023 3:25 PM EST [facility] ?[address] ? [place] [address] ? Ultrasound Report ? Signed ? Patient: [place] ? MR#: [id number] ?? : 2005 ?Acct:[id number] ?? Age/Sex: 18 / F ?ADM Date: 04/13/23 ?? [facility] ? Attending Dr: Ronaldo Melgar D.O. ? Ordering Physician: Ronaldo Melgar D.O. ?? Date of Service: 04/13/23 ?? Procedure(s): US OB transvaginal ?? Accession Number(s): [id number] ? cc: Ronaldo Melgar D.O.; NYASIA BREEN ? [facility] ? [address] [facility] ? [place] [address] ? Patient Name: ?? DESTIN ??KOUTS ? MRN: [facility]:[id number] ? date: 2005 ?Sex: F ?? Assigned Patient Location[facility] ?? Current Patient Location: [facility] ?? Accession/Order Number: [id number] ?? Exam Date: 04/13/2023 ??14:11 ?Report Date: 04/13/2023 ??15:22 ? At the request of: ?? RONALDO ??OVI ? Procedure: ??US OB transvaginal ? EXAMINATION: US OB transvaginal ? HISTORY: MISSED MENSES ? COMPARISON: No relevant comparison available. ? FINDINGS: ? GESTATIONAL SAC: Present and normal appearing. ?? YOLK SAC: Present and normal appearing. ?? POLE: Present and normal appearing. ?? CARDIAC: Present. ? UTERUS: Normal size and appearance. ?? OVARIES: Right: Normal. Left: Normal. ?? CERVIX: 3.8 cm in length and closed. ?? CUL-DE-SAC: Normal. ?? OTHER: None. ? AGE BY LMP: Unknown LMP ?? VICTOR M BY LMP: ?? AGE BY US CRL: 11 weeks 6 days ?? VICTOR M BY US CRL: 10/27/2023 ? US/US OB transvaginal ?? IMPRESSION: ? 1. Single live intrauterine 11 weeks 6 days by today's ultrasound. ? Electronically authenticated by: TINO ??WAYNE ?? Date: 04/13/2023 ??15:22 ? Dictated By: ?Tino Mosqueda M.D. ? Signed By: ?04/13/23 1525 ? DD/ 1522 ? TD/TT: ? High School Counselor: Procedure Note Radiology, Radiologist, - 04/13/2023 [place] [address] Ultrasound Report Signed Patient: Amada ManciniR#: [id number] : 2005Acct:[id number] Age/Sex: 18 / FADM Date: 04/13/23 Loc: [facility] Attending Dr: Ronaldo Melgar D.O. Ordering Physician: Ronaldo Melgar D.O. Date of Service: 04/13/23 Procedure(s): US OB transvaginal Accession Number(s): [id number] cc: Ronaldo Melgar D.O.; NYASIA BREEN The [place] [address] Patient Name: DESTIN MANCINI MRN: [id number] date: 2005 Sex: F Assigned Patient Location: [facility] Current Patient Location: [facility] Accession/Order Number: [id number] Exam Date: 04/13/2023 14:11 Report Date: 04/13/2023 15:22 At the request of: RONALDO MELGAR Procedure: US OB transvaginal EXAMINATION: US OB transvaginal HISTORY: MISSED MENSES COMPARISON: No relevant comparison available. FINDINGS: GESTATIONAL SAC: Present and normal appearing. YOLK SAC: Present and normal appearing. POLE: Present and normal appearing. CARDIAC: Present. UTERUS: Normal size and appearance. OVARIES: Right: Normal. Left: Normal. CERVIX: 3.8 cm in length and closed. CUL-DE-SAC: Normal. OTHER: None. AGE BY LMP: Unknown LMP VICTO RM BY LMP: AGE BY US CRL: 11 weeks 6 days VICTOR M BY US CRL: 10/27/2023 US/US OB transvaginal IMPRESSION: 1. Single live intrauterine 11 weeks 6 days by chasidy. Electronically authenticated by: TINO MOSQUEDA Date: 04/13/2023 15:22 Dictated By: Tino Mosqueda M.D. Signed By:04/13/23 1525 DD/ 1522 TD/TT: High School Counselor: Authorizing ProviderResult TypeResult StatusGeneric External Data Provider CLINISYNC IMAGINGFinal Result documented in this encounter Visit Diagnoses Not on filedocumented in this encounter Additional Health Concerns AssessmentNoted TimePHQ-9 Depression Total Score: 1:09 PM EDT documented as of this encounter Care Teams Team MemberRelationshipSpecialtyStart DateEnd Date Nyasia Breen MD [address] [place] [address] PCP - GeneralFamily Medicine08/11/22 Karen Perez CNM [address] [place] [address] Obstetrics and Gynecology08/11/22documented as of this encounter
--- OUTSIDE RECORDS SUMMARY | 2024-12-10 20:02 | XMS_ITS | Encounter Summary ---
Author Organization [facility] Address [address] [place] [address] Care Team Providers Care Lighting Designer Name Role Phone Karen Perez Aneudy CNM Unavailable [phone] Nyasia Breen MD Primary Care Provider [phone] Encounter Details DateTypeDepartmentCare Team (Latest Contact Info)Jbxdpwtmojl02/01/2024Clinisync Result Encounter [facility] External Department Unsolicited Provider, Generic External Data Social History Tobacco UseTypesPacks/DayYears UsedDateSmoking Tobacco: NeverSmokeless Tobacco: Never Comments:Uses tobacco in oth er forms Alcohol UseStandard Drinks/WeekCommentsNot Currently0 (1 standard drink = 0.6 oz pure alcohol)6 or more drinkson 1 occasion/ less than monthly. caffeine:none PHQ-2AnswerDate RecordedPatient Health Questionnaire-2 Nyypm3353 CommentsYesSex and Gender InformationValueDate RecordedSex Assigned at BirthNot on fileLegal OqtLmpyht13/15/2023 7:34 PM EDTGender IdentityNot on fileSexual OrientationNot on filedocumented as of this encounter Plan of Treatment Not on file documented as of this encounter Procedures Procedure NamePriorityDate/TimeAssociated DiagnosisCommentsUS OB GROWTH 09/07/2023 9:12 AM EDT documented in this encounter Results * US OB GROWTH (09/07/2023 9:12 AM EDT)Anatomical RegionLateralityModalityOther Specimen (Source)Anatomical Location / LateralityCollection Method / Volume Collection TimeReceived Time09/07/2023 9:12 AM EDT Narrative 09/07/2023 9:15 AM EDT [facility] ?[address] ? [place] [address] ? Ultrasound Report ? Signed ? Patient: KOUTS,DESTIN ? MR#: [id number] ?? : 2005 ?Acct:[id number] ?? Age/Sex: 18 / F ?ADM Date: 09/07/23 ?? Loc[facility] ? Attending Dr: Ronaldo Melgar D.O. ? Ordering Physician: Ronaldo Melgar D.O. ?? Date of Service: 09/07/23 ?? Procedure(s): US OB growth ?? Accession Number(s): [id number] ? cc: Ronaldo Melgar D.O.; NYASIA BREEN ? [facility] ? [address] [facility] ? [place] [address] ? Patient Name: ?? DESTIN ??KOUTS ? MRN: [facility]:[id number] ? date: 2005 ?Sex: F ?? Assigned Patient [facility] ?? Current Patient [facility] ?? Accession/Order Number: [id number] ?? Exam Date: 09/07/2023 ??08:09 ?Report Date: 09/07/2023 ??09:12 ? At the request of: ?? RONALDO ??OVI ? Procedure: ??US OB growth ? EXAMINATION: US OB growth ? HISTORY: LARGE FOR GESTATIONAL AGE ? COMPARISON: Ultrasound OB anatomy 07/20/2023 ? FINDINGS: ? Heart Rate: 139 bpm ?? Amniotic Fluid Volume: 20.0 cm ?? Number: 1 ?? Position: CEPHALIC ? BIOMETRY: ?? BPD: 8.18 cm; 32 weeks 6 days; 43.70 % ?? HC: 29.68 cm; 32 weeks 6 days; 14.50 % ?? AC: 29.88 cm; 33 weeks 6 days; 78.40 % ?? FL: 6.12 cm; 31 weeks 5 days; 13.60 % ?? EFW: 2165.73 g; 47 % ?? FL/AC: 20.48 ?? FL/BPD: 74.82 ?? HC/AC: 0.99 ? GESTATIONAL AGE: ?? Age by EDC: 32 weeks 6 days ?? VICTOR M by EDC: 2023-10-27 ?? Age by US: 32 weeks 6 days ?? VICTOR M by US: 2023-10-27 ? US/US OB growth ?? IMPRESSION: ? 1. Single live intrauterine with growth detailed above. ? Electronically authenticated by: TINO ??WAYNE ?? Date: 09/07/2023 ??09:12 ? Dictated By: ?Tino Mosqueda M.D. ? Signed By: ?09/07/23 0915 ? DD/ 0912 ? TD/TT: ? Fashion Adviser: Procedure Note Radiology, Radiologist, - 09/07/2023 [place] [address] Ultrasound Report Signed Patient: MIHIR MANCINIR#: [id number] : 2005Acct:[id number] Age/Sex: 18 / FADM Date: 09/07/23 Loc: [facility] Attending Dr: Ronaldo Melgar D.O. Ordering Physician: Ronaldo Melgar D.O. Date of Service: 09/07/23 Procedure(s): US OB growth Accession Number(s): [id number] cc: Ronaldo Melgar D.O.; NYASIA BREEN The [place] [id number] Patient Name: DESTIN MANCINI MRN: [id number] date: 2005 Sex: F Assigned Patient Location: [facility] Current Patient Location: [facility] Accession/Order Number: [id number] Exam Date: 09/07/2023 08:09 Report Date: 09/07/2023 09:12 At the request of: RONALDO MELGAR Procedure: US OB growth EXAMINATION: US OB growth HISTORY: LARGE FOR GESTATIONAL AGE COMPARISON: Ultrasound OB anatomy 07/20/2023 FINDINGS: Heart Rate: 139 bpm Amniotic Fluid Volume: 20.0 cm Number: 1 Position: CEPHALIC BIOMETRY: BPD: 8.18 cm; 32 weeks 6 days; 43.70 % HC: 29.68 cm; 32 weeks 6 days; 14.50 % AC: 29.88 cm; 33 weeks 6 days; 78.40 % FL: 6.12 cm; 31 weeks 5 days; 13.60 % EFW: 2165.73 g; 47 % FL/AC: 20.48 FL/BPD: 74.82 HC/AC: 0.99 GESTATIONAL AGE: Age by EDC: 32 weeks 6 days VICTOR M by EDC: 2023-10-27 Age by US: 32 weeks 6 days VICTOR M by US: 2023-10-27 US/US OB growth IMPRESSION: 1. Single live intrauterine with growth detailed above. Electronically authenticated by: TINO MOSQUEDA Date: 09/07/2023 09:12 Dictated By: Tino Mosqueda M.D. Signed By:09/07/23914 DD/ 1 TD/TT: Fashion Adviser: Authorizing ProviderResult TypeResult StatusGeneric External Data Provider CLINISYNC IMAGINGFinal Result documented in this encounter Visit Diagnoses Not on filedocumented in this encounter Additional Health Concerns AssessmentNoted TimePHQ-9 Depression Total Score: 309 1:09 PM EDT documented as of this encounter Care Teams Team MemberRelationshipSpecialtyStart DateEnd Date Nyasia Breen MD [address] [place] [address] PCP - GeneralFamily Medicine08/11/22 Karen Perez CNM [address] [facility] [place] [address] Obstetrics and Gynecology08/11/22documented as of this encounter
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
== END 2024-12-10 21:39 | disposition home or self-care (01) ==
PROVIDERS: Emergency Provider Internal Medicine; PCP Family Medicine
DX: S06.0XAA Concussion with loss of consciousness status unknown, initial encounter (principal); V48.6XXA Car passenger injured in noncollision transport accident in traffic accident, initial encounter
CPT/HCPCS: 70450; 72125; 76376; 99284